=== PATIENT | female | born 1965 | race African-American/Black ===

== ENCOUNTER 2018-02-21 16:59 | Emergency (ER) | payer MEDICAID ==
[2018-02-21 17:20] VITALS: BP 124/93
--- NOTE | 2018-02-21 18:07 | EDPHY ---
H & P Time Seen by Provider: 02/21/18 17:57 HPI/ROS: Chief complaint. Dental pain HPI. 52-year-old female here with dental pain for 2 months. Right lower jaw. It is causing some right facial pain. She thinks she might need a root canal but does not have an appointment with a dentist yet. No fever. No cough, chest pain, shortness of breath, abdominal pain. Apparent no trauma to the tooth. ROS Constitutional. no fever/chills, no weakness Eyes. no problems with vision ENT. Right dental pain Cardiovascular. no chest pain Respiratory. no shortness of breath, no cough Abdominal. no abdominal pain, no nausea/vomiting, no diarrhea . no problems urinating MS. no calf pain/swelling, no neck/back pain, no joint pain Skin. no rash Lymph. no swollen glands Neuro. no headache, no dizziness, no difficulty walking or with speech Past Medical/Surgical History: Fibromyalgia, carpal tunnel surgery, anxiety, hypertension, GERD, right face tumor with surgery Social History: Single, daily smoker, no alcohol Smoking Status: Current every day smoker Physical Exam: General Appearance: Alert well-developed female mild distress vital signs are stable Eyes: Pupils equal and round no pallor or injection. ENT, tenderness to the right posterior molar. No obvious swelling. No significant caries are observed. No masses or erythema around it. Respiratory: There are no retractions, lungs are clear to auscultation. Cardiovascular: Regular rate and rhythm. Gastrointestinal: Abdomen is soft and nontender, no masses, bowel sounds normal. Neurological: Awake and alert, sensory and motor exams grossly normal. Skin: Warm and dry, no rashes. Musculoskeletal: Neck is supple nontender. Extremities symmetrical, full range of motion. Psychiatric: Patient is oriented X 3, there is no agitation. Constitutional: Initial Vital Signs Temperature (C) 37.3 C 02/21/18 17:13 Heart Rate 108 H 02/21/18 17:13 Respiratory Rate 18 02/21/18 17:13 Blood Pressure 124/93 H 02/21/18 17:13 O2 Sat (%) 97 02/21/18 17:13 O2 Delivery Mode Room Air Allergies/Adverse Reactions: No Known Allergies Allergy (Verified 02/21/18 17:11) Home Medications: Medication Instructions Recorded Ambien 02/21/18 Hydrocodone-Acetamin 5-325 mg 02/21/18 Ibuprofen 02/21/18 LYRICA 02/21/18 Norvasc 10 mg (*) 02/21/18 Penicillin V Potassium [Penicillin 500 mg PO TID #20 tablet 02/21/18 VK] Prilosec 02/21/18 clonIDINE 02/21/18 Medical Decision Making Procedures: Ibuprofen and penicillin in the emergency department ED Course/Re-evaluation: I called dental aid to refer this patient and left a message at 7:20 a.m.-0 [phone]. I have referred the patient to dental aid and she and I have discussed treatment plan including referral. She expresses understanding and agree Differential Diagnosis: Likely dental caries and possibly needing a root canal. No obvious evidence for abscess at this time. Departure - Departure Disposition: Home, Routine, Self-Care Clinical Impression: Tooth pain Condition: Good Instructions: Toothache (ED) Additional Instructions: Ibuprofen 6-800 mg every 6 hr for discomfort. Penicillin 3 times daily for infection. Call dental aid tomorrow to arrange follow-up. Return for worsening symptoms Referrals: EMMANU[facility] GARC[facility] [Other] - As per Instructions [facility] [Outside] - As per Instructions Prescriptions: Penicillin V Potassium [Penicillin VK] 500 mg PO TID #20 tablet
[2018-02-21] MEDS ORDERED: IBUPROFEN 600 MG TAB PO ONE ×2 (18:09→18:18)
[2018-02-21] MEDS ORDERED: PENICILLIN VK 500 MG TAB PO ONE (18:09)
[2018-02-21] MEDS ORDERED: IBUPROFEN 200 MG TAB PO ONE ×2 (18:16→18:19)
== END 2018-02-21 18:27 | disposition home or self-care (01) ==
LOC: CED 16:59
DX: K08.89 Other specified disorders of teeth and supporting structures (principal); I10 Essential (primary) hypertension; F17.200 Nicotine dependence, unspecified, uncomplicated

== ENCOUNTER → 2018-02-21 | Emergency (ER) | payer MEDICAID ==
[2018-02-21 15:22] VITALS: BP 138/85
== END ==
DX: Z53.21 Procedure and treatment not carried out due to patient leaving prior to being seen by health care provider (principal)